=== PATIENT | male | born 1985 | race African-American/Black ===

== ENCOUNTER 2017-08-23 05:07 | Inpatient (IN) | payer MEDICARE, MEDICAID ==
[2017-08-23 05:40] LABS: Basophils % (A) 0 %; Eosinophils # (A) 0.2 k/uL (0-0.7); Eosinophils % (A) 2 %; HCT 41.8 % (39.0-53.0); HGB 14.1 gm/dL (13.0-17.5); Lymphocytes # (A) 2.3 k/uL (1.0-4.8); Lymphocytes % (A) 31 %; MCH 30.2 pg (25.0-35.0); MCHC 33.7 g/dL (31.0-37.0); MCV 89.5 fL (80.0-100.0); Mean Platelet Volume 6.2; Monocytes # (A) 0.3 k/uL (0-1.0); Monocytes % (A) 4 %; Neutrophils # (A) 4.7 k/uL (1.3-7.7); Neutrophils % (A) 62 %; Platelet Count 268 k/uL (150-450); RBC 4.67 m/uL (4.30-5.90); RDW 13.3 % (11.5-15.5); WBC 7.5 k/uL (3.8-10.6)
[2017-08-23 05:46] LABS: Appearance,Urine Cloudy (Clear); Bilirubin,Urine Negative (Negative); Blood,Urine Negative (Negative); Color,Urine Yellow; Glucose,Urine (UA) Negative (Negative); Ketones,Urine Trace (Negative); Leukocyte Esterase,Urine Moderate (Negative); Mucus,Urine Many /hpf; Nitrite,Urine Negative (Negative); Protein,Urine 1+ (Negative); Squamous Epithelial Cell,Urine 10 /hpf (0-4); WBC,Urine 16 /hpf (0-5)
[2017-08-23 05:48] LABS: ALT 33 U/L (21-72); AST 19 U/L (17-59); Albumin 4.6 g/dL (3.5-5.0); Alkaline Phosphatase 55 U/L (38-126); Amphetamine Screen,Urine Not Detected (NotDetected); Anion Gap 20 mmol/L; Barbiturate Screen,Urine Not Detected (NotDetected); Benzodiazepines Screen,Urine Not Detected (NotDetected); Blood Urea Nitrogen 13 mg/dL (9-20); Carbon Dioxide 23 mmol/L (22-30); Chloride 104 mmol/L (98-107); Cocaine Screen,Urine Not Detected (NotDetected); Glucose 136 mg/dL (74-99); Methadone Screen, Urine Not Detected (NotDetected); Opiate Screen,Urine Not Detected (NotDetected); Oxycodone Screen, Urine Not Detected (NotDetected); Phencyclidine Screen,Urine Not Detected (NotDetected); Potassium 3.6 mmol/L (3.5-5.1); Sodium 147 mmol/L (137-145); Total Bilirubin 0.3 mg/dL (0.2-1.3); Total Protein 7.5 g/dL (6.3-8.2); Tricyclic Antidepressant,Urine Not Detected (NotDetected); Urn Cannabinoid Scrn Not Detected (NotDetected)
--- NOTE | 2017-08-23 06:07 | ED ---
Psych HPI - General Chief Complaint: Psychiatric Symptoms Stated Complaint: Eval Time Seen by Provider: 08/23/17 05:13 Source: police, EMS Mode of arrival: EMS - History of Present Illness Initial Comments: This patient is a 32-year-old man brought here to have psychiatric evaluation. Patient arrives after [place] to [place]. He reportedly had taken a wrong turn on the highway and instead of going to [place] ended up going towards [place]. Then when he was questioned by the authorities there, he reportedly had given some answers it sounded delusional. 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 When I interview the patient, he is denying hallucinations. He denies homicidal or suicidal ideation. MD Complaint: other Onset/Timin -: hour(s) - Related Data Home Medications Medication Instructions Recorded Confirmed ARIPiprazole [Abilify] 15 mg PO DAILY@0800 08/23/17 08/25/17 Losartan Potassium 100 mg PO BID@08,20 08/23/17 08/25/17 OXcarbazepine [Trileptal] 600 mg PO BID@08,20 08/23/17 08/25/17 Simvastatin [Zocor] 20 mg PO HS@199908/23/17 08/25/17 fluPHENAZine DECANOATE [Prolixin 1 dose IM [id number] 08/23/17 08/25/17 Decanoate] Allergies Allergy/AdvReac Type Severity Reaction Status Date / Time No Known Allergies Allergy Verified 08/25/17 23:20 Review of Systems ROS Statement: Those systems with pertinent positive or pertinent negative responses have been documented in the HPI. ROS Other: All systems not noted in ROS Statement are negative. Constitutional: Denies: fever Respiratory: Denies: cough, dyspnea Cardiovascular: Denies: chest pain, palpitations, syncope Gastrointestinal: Denies: abdominal pain, vomiting, diarrhea Genitourinary: Denies: dysuria, hematuria Skin: Denies: rash Neurological: Denies: headache Past Medical History Past Medical History: Hypertension History of Any Multi-Drug Resistant Organisms: None Reported Past Surgical History: No Surgical Hx Reported Past Psychological History: No Psychological Hx Reported Smoking Status: Current every day smoker Past Alcohol Use History: None Reported Past Drug Use History: None Reported - Past Family History Father Family Medical History: No Reported History Mother Family Medical History: No Reported History General Exam Limitations: no limitations General appearance: alert Head exam: Present: atraumatic Eye exam: Present: normal appearance Respiratory exam: Present: normal lung sounds bilaterally. Absent: respiratory distress, wheezes, rales, rhonchi, stridor Cardiovascular Exam: Present: regular rate, normal rhythm, normal heart sounds GI/Abdominal exam: Present: soft. Absent: distended, tenderness, guarding Extremities exam: Present: normal capillary refill. Absent: pedal edema Neurological exam: Present: alert Skin exam: Present: warm, dry, intact, normal color. Absent: rash Course Vital Signs 08/23/17 08/23/17 08/23/17 05:14 10:53 18:17 Temperature 99.2 F 98.9 F 99.1 F Pulse Rate 120 H 102 H 100 Respiratory 18 18 18 Rate Blood Pressure 169/97 160/91 153/88 O2 Sat by Pulse 98 97 98 Oximetry Medical Decision Making - Lab Data Result diagrams: 08/23/17 05:27 08/23/17 05:27 Lab Results 08/23/17 08/23/17 08/23/17 Range/Units 05:27 05:27 05:27 WBC 7.5 (3.8-10.6) k/uL RBC 4.67 (4.30-5.90) m/uL Hgb 14.1 (13.0-17.5) gm/dL Hct 41.8 (39.0-53.0) % MCV 89.5 (80.0-100.0) fL MCH 30.2 (25.0-35.0) pg MCHC 33.7 (31.0-37.0) g/dL RDW 13.3 (11.5-15.5) % Plt Count 268 (150-450) k/uL Neutrophils % 62 % Lymphocytes % 31 % Monocytes % 4 % Eosinophils % 2 % Basophils % 0 % Neutrophils # 4.7 (1.3-7.7) k/uL Lymphocytes # 2.3 (1.0-4.8) k/uL Monocytes # 0.3 (0-1.0) k/uL Eosinophils # 0.2 (0-0.7) k/uL Basophils # 0.0 (0-0.2) k/uL Sodium 147 H (137-145) mmol/L Potassium 3.6 (3.5-5.1) mmol/L Chloride 104 (98-107) mmol/L Carbon Dioxide 23 (22-30) mmol/L Anion Gap 20 mmol/L BUN 13 (9-20) mg/dL Creatinine 0.80 (0.66-1.25) mg/dL Est GFR (CKD-EPI)AfAm >90 (>60 ml/min/1.73 sqM) Est GFR (CKD-EPI)NonAf >90 (>60 ml/min/1.73 sqM) Glucose 136 H (74-99) mg/dL Calcium 10.0 (8.4-10.2) mg/dL Total Bilirubin 0.3 (0.2-1.3) mg/dL AST 19 (17-59) U/L ALT 33 (21-72) U/L Alkaline Phosphatase 55 (38-126) U/L Troponin I <0.012 (0.000-0.034) ng/mL Total Protein 7.5 (6.3-8.2) g/dL Albumin 4.6 (3.5-5.0) g/dL Triglycerides (<150) mg/dL Cholesterol (<200) mg/dL LDL Cholesterol, Calc (0-99) mg/dL HDL Cholesterol (40-60) mg/dL TSH 2.190 (0.465-4.680) mIU/L Urine Color Urine Appearance (Clear) Urine pH (5.0-8.0) Ur Specific [place] (1.001-1.035) Urine Protein (Negative) Urine Glucose (UA) (Negative) Urine Ketones (Negative) Urine Blood (Negative) Urine Nitrite (Negative) Urine Bilirubin (Negative) Urine Urobilinogen (<2.0) mg/dL Ur Leukocyte Esterase (Negative) Urine WBC (0-5) /hpf Ur Squamous Epith Cells (0-4) /hpf Urine Mucus (None) /hpf Urine Opiates Screen (NotDetected) Ur Oxycodone Screen (NotDetected) Urine Methadone Screen (NotDetected) Ur Propoxyphene Screen (NotDetected) Ur Barbiturates Screen (NotDetected) U Tricyclic Antidepress (NotDetected) Ur Phencyclidine Scrn (NotDetected) Ur Amphetamines Screen (NotDetected) U Methamphetamines Scrn (NotDetected) U Benzodiazepines Scrn (NotDetected) Urine Cocaine Screen (NotDetected) U Marijuana (THC) Screen (NotDetected) 08/23/17 08/23/17 Range/Units 05:27 05:27 WBC (3.8-10.6) k/uL RBC (4.30-5.90) m/uL Hgb (13.0-17.5) gm/dL Hct (39.0-53.0) % MCV (80.0-100.0) fL MCH (25.0-35.0) pg MCHC (31.0-37.0) g/dL RDW (11.5-15.5) % Plt Count (150-450) k/uL Neutrophils % % Lymphocytes % % Monocytes % % Eosinophils % % Basophils % % Neutrophils # (1.3-7.7) k/uL Lymphocytes # (1.0-4.8) k/uL Monocytes # (0-1.0) k/uL Eosinophils # (0-0.7) k/uL Basophils # (0-0.2) k/uL Sodium (137-145) mmol/L Potassium (3.5-5.1) mmol/L Chloride (98-107) mmol/L Carbon Dioxide (22-30) mmol/L Anion Gap mmol/L BUN (9-20) mg/dL Creatinine (0.66-1.25) mg/dL Est GFR (CKD-EPI)AfAm (>60 ml/min/1.73 sqM) Est GFR (CKD-EPI)NonAf (>60 ml/min/1.73 sqM) Glucose (74-99) mg/dL Calcium (8.4-10.2) mg/dL Total Bilirubin (0.2-1.3) mg/dL AST (17-59) U/L ALT (21-72) U/L Alkaline Phosphatase (38-126) U/L Troponin I (0.000-0.034) ng/mL Total Protein (6.3-8.2) g/dL Albumin (3.5-5.0) g/dL Triglycerides 107 (<150) mg/dL Cholesterol 204 H (<200) mg/dL LDL Cholesterol, Calc 143 H (0-99) mg/dL HDL Cholesterol 40 (40-60) mg/dL TSH (0.465-4.680) mIU/L Urine Color Yellow Urine Appearance Cloudy (Clear) Urine pH 6.0 (5.0-8.0) Ur Specific [place] 1.030 (1.001-1.035) Urine Protein 1+ H (Negative) Urine Glucose (UA) Negative (Negative) Urine Ketones Trace H (Negative) Urine Blood Negative (Negative) Urine Nitrite Negative (Negative) Urine Bilirubin Negative (Negative) Urine Urobilinogen 4.0 (<2.0) mg/dL Ur Leukocyte Esterase Moderate H (Negative) Urine WBC 16 H (0-5) /hpf Ur Squamous Epith Cells 10 H (0-4) /hpf Urine Mucus Many H (None) /hpf Urine Opiates Screen Not Detected (NotDetected) Ur Oxycodone Screen Not Detected (NotDetected) Urine Methadone Screen Not Detected (NotDetected) Ur Propoxyphene Screen Not Detected (NotDetected) Ur Barbiturates Screen Not Detected (NotDetected) U Tricyclic Antidepress Not Detected (NotDetected) Ur Phencyclidine Scrn Not Detected (NotDetected) Ur Amphetamines Screen Not Detected (NotDetected) U Methamphetamines Scrn Not Detected (NotDetected) U Benzodiazepines Scrn Not Detected (NotDetected) Urine Cocaine Screen Not Detected (NotDetected) U Marijuana (THC) Screen Not Detected (NotDetected) Disposition Clinical Impression: Psychosis Disposition: ADMITTED IP TO THIS HOSP Condition: Fair Is patient prescribed a controlled substance at d/c from ED?: No
[2017-08-23] MEDS ORDERED: OXcarbazepine 300 MG TAB PO STA ×2 (10:32→18:52)
[2017-08-23] MEDS ORDERED: LOSARTAN 50 MG TAB PO STA ×2 (10:33→18:49)
[2017-08-23] MEDS ORDERED: ARIPiprazole 15 MG TAB PO STA ×2 (10:34→18:48)
[2017-08-23] MEDS ORDERED: LORazepam 1 MG TAB PO PRN (19:15)
[2017-08-23] MEDS ORDERED: MAGNESIUM HYDROXIDE 2,400 MG/10 ML CUP PO PRN (19:15)
[2017-08-23] MEDS ORDERED: ZIPRASIDONE 20 MG VIAL IM PRN (19:15)
[2017-08-23] MEDS ORDERED: ACETAMINOPHEN TAB 325 MG TAB PO PRN (19:15)
[2017-08-23] MEDS ORDERED: MAG HYDROX/AL HYDROX/SIMETH 30 ML CUP PO PRN (19:15)
[2017-08-23] MEDS ORDERED: ATORVASTATIN 10 MG TAB PO SCH (20:00)
--- NOTE | 2017-08-23 20:27 | P.HPMEDMHU ---
History of Present Illness H&P Date: 08/23/17 Chief Complaint: delusions Patient is a 32-year-old -[place] male with a history of hypertension, dyslipidemia, and history of mental health disorder who was brought in by police to the ER for delusional behaviors. 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 None of these statements appears to be true. Was also found that patient had recently been released from [facility] after a one-month hospitalization. He has subsequently been admitted to the mental health unit. Patient seen and examined at bedside with nursing present. He is very angry about receiving an injection prior to coming to the mental health unit. He complains of pain in his right finger after an Accu-Chek and pain in his left thigh after an IM injection. He denies any chest pain, shortness of breath, nausea, vomiting, constipation, dysuria, or diarrhea. 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 He needs to talk to the [place]. We explained him the process of being petitioned. When I asked him his medical history he said you already know, its in my records and I'm not going to continue to repeat it. Review of Systems Unable to fully obtain due to patient being abrasive with questioning and not answering questions, as able to obtain in [facility]. Past Medical History Past Medical History: Hypertension Additional Past Medical History / Comment(s): Patient [facility] HTN, he also appears to be on medications for HLD but patient denies high cholesterol when asked. History of Any Multi-Drug Resistant Organisms: None Reported Past Surgical History: No Surgical Hx Reported Past Psychological History: No Psychological Hx Reported Smoking Status: Current every day smoker Past Alcohol Use History: None Reported Past Drug Use History: None Reported - Past Family History Father Family Medical History: No Reported History Mother Family Medical History: No Reported History Medications and Allergies Home Medications Medication Instructions Recorded Confirmed Type ARIPiprazole [Abilify] 15 mg PO DAILY@0800 08/23/17 08/23/17 History Losartan Potassium 100 mg PO BID@08,20 08/23/17 08/23/17 History OXcarbazepine [Trileptal] 600 mg PO BID@08,20 08/23/17 08/23/17 History Simvastatin [Zocor] 20 mg PO HS@199908/23/17 08/23/17 History fluPHENAZine DECANOATE [Prolixin 1 dose IM [id number] 08/23/17 08/23/17 History Decanoate] Allergies Allergy/AdvReac Type Severity Reaction Status Date / Time No Known Allergies Allergy Verified 08/23/17 09:53 Physical Exam Osteopathic Statement: *. No significant issues noted on an osteopathic structural exam other than those noted in the History and Physical/Consult. Vitals: Vital Signs Temp Pulse Resp BP Pulse Ox 08/23/17 18:17 99.1 F 100 18 153/88 98 08/23/17 10:53 98.9 F 102 H 18 160/91 97 08/23/17 05:14 99.2 F 120 H 18 169/97 98 Intake and Output 08/23/17 08/23/17 08/23/17 06:59 14:59 22:59 Other: Weight 99.79 kg General: non toxic, no distress, appears at stated age, obese Derm: no unusual rashes/lesions no unusual ecchymoses, warm, dry, tattoos Head: atraumatic, normocephalic, symmetric Eyes: EOMI, no lid lag, anicteric sclera, pupils equal round reactive to light ENT: Nose and ears atraumatic, no thrush, no pharyngeal erythema Neck: No thyromegaly, no cervical lymphadenopathy, trachea midline, supple Mouth: no lip lesion, mucus membranes moist Cardiovascular: S1S2 reg, no murmur, positive posterior tibial pulse bilateral, no edema, capillary refill less than 2 seconds Lungs: Wheeze right base, no rhonchi, no rales , no accessory muscle use Abdominal: soft, nontender to palpation, no guarding, no appreciable organomegaly, normal bowel sounds Ext: no gross muscle atrophy, muscle strength grossly intact, no contractures, Neuro: CN II-XI grossly intact, Psych: Alert, oriented to place and person, appropriate affect Cranial Nerve Examination - Cranial Nerves Cranial Nerve II- Optic: Intact Cranial Nerve III- Oculomotor: Intact Cranial Nerve IV- Trochlear: Intact Cranial Nerve V- Trigeminal: Intact Cranial Nerve - Abducens: Intact Cranial Nerve VII- Facial: Intact Cranial Nerve VIII- Auditory: Intact Cranial Nerve IX- Glossopharyngeal: Intact Cranial Nerve X- Vagus: Intact Cranial Nerve XI- Accessory: Intact Cranial Nerve XII- Hypoglossal: Intact Results CBC & Chem 7: 08/23/17 05:27 08/23/17 05:27 Labs: Abnormal Lab Results - Last 24 Hours (Table) 08/23/17 08/23/17 Range/Units 05:27 05:27 Sodium 147 H (137-145) mmol/L Glucose 136 H (74-99) mg/dL Urine Protein 1+ H (Negative) Urine Ketones Trace H (Negative) Ur Leukocyte Esterase Moderate H (Negative) Urine WBC 16 H (0-5) /hpf Ur Squamous Epith Cells 10 H (0-4) /hpf Urine Mucus Many H (None) /hpf Assessment and Plan Assessment: Hypertension, mildly elevated on arrival -Resume losartan -Follow blood pressures Dyslipidemia -Continue statin -Check lipid profile in a.m. Tobacco abuse -Cessation -Nicotine replacement Morbid obesity with BMI 34.5 -Structured outpatient weight loss Delusional behaviors -Your psych management Thank you for allowing us to participate in the care of this patient. We will follow peripherally. Do not hesitate to contact us with questions. Someone can be reached from the [facility] hospitalist group at all hours of the day at [phone].
[2017-08-24 03:28] LABS: Cholesterol 204 mg/dL (<200); HDL Cholesterol 40 mg/dL (40-60); LDL Cholesterol,Calculated 143 mg/dL (0-99); Triglycerides 107 mg/dL (<150)
[2017-08-24] MEDS: ARIPiprazole 15 MG TAB PO SCH (09:19)
[2017-08-24] MEDS: OXcarbazepine 300 MG TAB PO SCH ×2 (09:19→20:51)
[2017-08-24] MEDS: LOSARTAN 50 MG TAB PO SCH ×2 (09:19→20:52)
--- NOTE | 2017-08-24 12:49 | P.HP ---
Psychiatric H&P - . H&P Date: 08/24/17 History & Physical: Allergies Allergy/AdvReac Type Severity Reaction Status Date / Time No Known Allergies Allergy Verified 08/23/17 09:53 Vital Signs Temp 96.9 F L 08/23/17 20:20 Pulse 148 H 08/24/17 09:10 Resp 18 08/24/17 09:10 BP 145/104 08/24/17 09:10 Pulse Ox 98 08/24/17 09:10 Laboratory Last Values WBC 7.5 k/uL (3.8-10.6) 08/23/17 05:27 RBC 4.67 m/uL (4.30-5.90) 08/23/17 05:27 Hgb 14.1 gm/dL (13.0-17.5) 08/23/17 05:27 Hct 41.8 % (39.0-53.0) 08/23/17 05:27 MCV 89.5 fL (80.0-100.0) 08/23/17 05:27 MCH 30.2 pg (25.0-35.0) 08/23/17 05:27 MCHC 33.7 g/dL (31.0-37.0) 08/23/17 05:27 RDW 13.3 % (11.5-15.5) 08/23/17 05:27 Plt Count 268 k/uL (150-450) 08/23/17 05:27 Neutrophils % 62 % 08/23/17 05:27 Lymphocytes % 31 % 08/23/17 05:27 Monocytes % 4 % 08/23/17 05:27 Eosinophils % 2 % 08/23/17 05:27 Basophils % 0 % 08/23/17 05:27 Neutrophils # 4.7 k/uL (1.3-7.7) 08/23/17 05:27 Lymphocytes # 2.3 k/uL (1.0-4.8) 08/23/17 05:27 Monocytes # 0.3 k/uL (0-1.0) 08/23/17 05:27 Eosinophils # 0.2 k/uL (0-0.7) 08/23/17 05:27 Basophils # 0.0 k/uL (0-0.2) 08/23/17 05:27 Sodium 147 mmol/L (137-145) H 08/23/17 05:27 Potassium 3.6 mmol/L (3.5-5.1) 08/23/17 05:27 Chloride 104 mmol/L (98-107) 08/23/17 05:27 Carbon Dioxide 23 mmol/L (22-30) 08/23/17 05:27 Anion Gap 20 mmol/L 08/23/17 05:27 BUN 13 mg/dL (9-20) 08/23/17 05:27 Creatinine 0.80 mg/dL (0.66-1.25) 08/23/17 05:27 Est GFR (CKD-EPI)AfAm >90 (>60 ml/min/1.73 sqM) 08/23/17 05:27 Est GFR (CKD-EPI)NonAf >90 (>60 ml/min/1.73 sqM) 08/23/17 05:27 Glucose 136 mg/dL (74-99) H 08/23/17 05:27 Calcium 10.0 mg/dL (8.4-10.2) 08/23/17 05:27 Total Bilirubin 0.3 mg/dL (0.2-1.3) 08/23/17 05:27 AST 19 U/L (17-59) 08/23/17 05:27 ALT 33 U/L (21-72) 08/23/17 05:27 Alkaline Phosphatase 55 U/L (38-126) 08/23/17 05:27 Troponin I <0.012 ng/mL (0.000-0.034) 08/23/17 05:27 Total Protein 7.5 g/dL (6.3-8.2) 08/23/17 05:27 Albumin 4.6 g/dL (3.5-5.0) 08/23/17 05:27 Triglycerides 107 mg/dL (<150) 08/23/17 05:27 Cholesterol 204 mg/dL (<200) H 08/23/17 05:27 LDL Cholesterol, Calc 143 mg/dL (0-99) H 08/23/17 05:27 HDL Cholesterol 40 mg/dL (40-60) 08/23/17 05:27 TSH 2.190 mIU/L (0.465-4.680) 08/23/17 05:27 Urine Color Yellow 08/23/17 05:27 Urine Appearance Cloudy (Clear) 08/23/17 05:27 Urine pH 6.0 (5.0-8.0) 08/23/17 05:27 Ur Specific [place] 1.030 (1.001-1.035) 08/23/17 05:27 Urine Protein 1+ (Negative) H 08/23/17 05:27 Urine Glucose (UA) Negative (Negative) 08/23/17 05:27 Urine Ketones Trace (Negative) H 08/23/17 05:27 Urine Blood Negative (Negative) 08/23/17 05:27 Urine Nitrite Negative (Negative) 08/23/17 05:27 Urine Bilirubin Negative (Negative) 08/23/17 05:27 Urine Urobilinogen 4.0 mg/dL (<2.0) 08/23/17 05:27 Ur Leukocyte Esterase Moderate (Negative) H 08/23/17 05:27 Urine WBC 16 /hpf (0-5) H 08/23/17 05:27 Ur Squamous Epith Cells 10 /hpf (0-4) H 08/23/17 05:27 Urine Mucus Many /hpf (None) H 08/23/17 05:27 Urine Opiates Screen Not Detected (NotDetected) 08/23/17 05:27 Ur Oxycodone Screen Not Detected (NotDetected) 08/23/17 05:27 Urine Methadone Screen Not Detected (NotDetected) 08/23/17 05:27 Ur Propoxyphene Screen Not Detected (NotDetected) 08/23/17 05:27 Ur Barbiturates Screen Not Detected (NotDetected) 08/23/17 05:27 U Tricyclic Antidepress Not Detected (NotDetected) 08/23/17 05:27 Ur Phencyclidine Scrn Not Detected (NotDetected) 08/23/17 05:27 Ur Amphetamines Screen Not Detected (NotDetected) 08/23/17 05:27 U Methamphetamines Scrn Not Detected (NotDetected) 08/23/17 05:27 U Benzodiazepines Scrn Not Detected (NotDetected) 08/23/17 05:27 Urine Cocaine Screen Not Detected (NotDetected) 08/23/17 05:27 U Marijuana (THC) Screen Not Detected (NotDetected) 08/23/17 05:27 08/24/17 12:15 Identification: Patient is a 32-year-old male who was petitioned by the police [place]. 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 Patient was driving a van from the semi-assisted living facility that he resides in in [facility]. History of Present Illness: Patient is a poor historian, most of the information was obtained from the medical record as well as records from [facility] his outpatient treatment provider. Patient was most recently in [facility] from July 25 2 appears to be August 14, during that time patient was refusing injectable medication is unclear to me if he was taking oral medication and it is unclear if he actually took an injectable form of medication prior to his discharge from the hospital. Patient has reported to have refused an injection of Prolixin after discharge, this is unclear to me. Patient's medications were listed as Abilify 15 mg daily, Trileptal 600 mg twice a day and he was to be receiving long-acting Prolixin injectable. Patient refuses to cooperate during the interview stating that its his brother that should be in the hospital and should have been arrested last night. He states that his brother has the same name that he does and that its his brother who gets the patient put into the hospital. He states that he's tried to change his name and uses different social security number but his brother continues to find out that information. Patient states that he stopped taking any of his medications that he was discharged from the hospital on because they are confused with his brother who has the same name. He also reported that the medication had trackers and it them when I asked him to explain this further. He told me that the doctor at [facility] told him to stop taking all of his medications at their last appointment 2 days prior to his admission and he states that the doctor told him to leave. Patient states that he lives in a room and board, in fact he lives in a semi-independent living situation, patient states that he pays the insurance on the van, he was given the keys by a worker at the home and that he was trying to get to [place] to visit his . He states he took a wrong turn and ended up here in [place]. Patient reported to me that he does not require medication, we have him confused with his brother who does require hospitalization and medication. 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 Patient denied any prior history and denied any symptoms that I asked him about. Patient did not endorse any symptoms stating that this was all about his brother. Past Psychiatric History: patient refused to discuss his history stating that he 's never been admitted before, however the patient was in [facility] for 3-4 weeks just recently. Patient refused to discuss what prior medications he is on and states that he does not need them. Past Medical/Surgical History: patient refuses to answer any questions regarding his medical history stating that he does not have hypertension does not require medication for it and that if he has hypertension is because people gave him medications that caused him to have hypertension. Family History: patient refused to answer Social History: patient states he was born and raised in [place] both of his parents are alive and one living in [place] and one living in [place]. He states that when he was 1 years of age and he continued to live with his mother. He states he has 3 siblings. He reports that he finished high school and then went on to college where he obtained 42 some of which were a medical degree a PhD in philosophy, etc. 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 He states that he is on Social Security disability. Patient refused to discuss any abuse history. Substance Use History: patient denied that he is ever used any alcohol or drugs and states he recently started smoking regrets because of the stress she was under Legal History: Patient denied any legal history but stated his brother is been arrested multiple times for possession of drugs, breaking and entering as well as others charges Mental status: Appearance/Attitude: Patient is dressed in a hospital gown, makes intermittent eye contact, has poor grooming with a strong body odor and his hair is uncombed, patient is superficially cooperative refusing to answer most questions Behavior: Patient did not display any psychomotor agitation or retardation. Speech/Language: Patient was spontaneous, speech was of normal volume and rhythm and he was coherent Thought Process: Patient was rambling, at times tangential Thought Content: Patient denied auditory or visual hallucinations, he expressed multiple delusional thoughts regarding having 40, being a law officer, a medical doctor and stating that his brother has the same name and his brothers one who put the patient in the hospital and the brother is the one who does bad things and needs medication. 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 Patient states that the medications have trackers in them, that the physician recently told him that he needed to stop taking all of his medications and asked him to leave. Patient stated that he will not take any medications, states that he was incorrectly admitted to the last hospital and showed me his birthmark to prove that he is not his brother. Patient stated that he doesn't need medication that the medications caused his elevated blood pressure and he doesn't care if he has a stroke. Suicidal/Homicidal Ideation: Patient denied any current suicidal or homicidal ideation Sensorium/Cognition: Patient is alert and oriented to person, place, situation and unable to perform further cognitive testing is a patient does not cooperate Mood/Affect: Patient's mood is irritable, guarded and his affect is appropriate to his mood Insight/Judgment: Patient's insight and judgment are impaired Intellectual Functioning: patient's intellectual functioning appears average Strength/Weakness: unable to assess Assessment: patient was recently at [facility] and was discharged around August 14 after admission that began on July 25. It is unclear what medication the patient was taking in the hospital but from records from his outpatient provider he had been refusing injectable medication shortly prior to his discharge. Patient is to have recently refused an injection of Prolixin long-acting is unclear to me if this was in the hospital after his release. Patient presents with delusional ideation, grandiose in nature; he is refusing all medications stating that it is brother who has the same name that needs to be in the hospital. Patient took Ativan from his semi-independent housing and was driving he states to [place] to visit his when he took a wrong turn and ended up in [place] on the bridge entering [place]. 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 Patient would not respond to questions regarding his psychiatric or medical history, denied having any symptoms at all. 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 Patient is living in [place] in a semi-independent home. Patient's medications are to be Abilify 15 mg, Trileptal 600 twice a day and he was to be receiving long-acting Prolixin. Further information regarding this patient's prior psychiatric history, medical history are unobtainable from the patient, he is refusing his antihypertensive medications as he feels the medications have tracking on them and that he is been told to stop taking all of his medications. Admission Diagnosis: Psychosis, unspecified rule out bipolar disorder, current episode manic with psychotic features; rule out schizophrenia Plan: Patient was admitted on an involuntary basis and a second certificate was completed, patient is refusing all medications including his blood pressure medication stating that he does not require any. Patient was placed on routine observation in group and activity therapy were ordered. Patient also had routine laboratory studies as well as a medical consultation. Patient was continued on his medications for his blood pressure as well as medication for his elevated lipids. Patient was continued on Abilify 15 mg orally and Trileptal 600 mg twice a day. Patient was refused to take any of his medications. Patient requires hospitalization to further stabilize his psychotic symptoms. 08/24/17 12:33 08/24/17 12:48
[2017-08-24] MEDS: ATORVASTATIN 20 MG TAB PO SCH (20:52)
[2017-08-25] MEDS: ARIPiprazole 15 MG TAB PO SCH ×2 (09:33→12:17)
[2017-08-25] MEDS: LOSARTAN 50 MG TAB PO SCH ×2 (09:33→21:05)
[2017-08-25] MEDS: OXcarbazepine 300 MG TAB PO SCH (09:33)
[2017-08-25] MEDS: amLODIPine 5 MG TAB PO SCH (09:33)
[2017-08-25] MEDS ORDERED: ZIPRASIDONE 20 MG VIAL IM PRN (12:07)
--- NOTE | 2017-08-25 12:21 | P.PN ---
Progress Note - Text Progress Note Date: 08/25/17 Interval History: Patient is a 32-year-old male who was seen today, he states continue stay in his room. I discussed with him and brought him a copy of the paperwork from his court order that was obtained in [facility]. Patient continues to have 28 days left on his inpatient court order. Patient stated that he wanted to see a state or maintenance services dispatcher because this is not [facility] and is not valid here. Patient continues to refuse all medication, including his blood pressure medication. Mental Status: Appearance/Attitude: Patient is in a hospital gown, appears unkempt, is superficially cooperative Behavior: Patient does not exhibit any psychomotor agitation or retardation, but is easily irritated Speech/Language: Patient's speech is spontaneous of normal volume and rhythm and he is coherent Thought Process: Patient is goal-directed Thought Content: Patient refuses to answer questions, stating that he needs to talk to a state or maintenance services dispatcher regarding the court order for treatment as this is not [facility]. Explained to him that the probate Court had been contacted here and that a court order was valid and any County [place] [facility] [place]. Patient continues to refuse treatment stating that he does not require medication or treatment. Suicidal/Homicidal Ideation: Patient refused to answer Sensorium/Cognition: Patient is alert and oriented to person, place and time Mood/Affect: Patient's mood is irritable and guarded and his affect is appropriate to his mood Insight/Judgment: Patient's insight and judgment are limited Assessment: A copy of the court order was obtained from [facility] and the patient is 28 days left remaining on a 45 day inpatient hospitalization order. Patient was given a copy of this order and stated that he doesn't need medication, has not county, the order is not valid. patient was told that this was confirmed with the probate court in this county and he continues to state that he is not going to take medication. i explained again to the patient what meaning of a court order is the fact that this means he has to take medication that if he does not take it orally he will receive an injection. Plan: Patient will be offered Abilify 15 mg orally on a daily basis and if he refuses will receive Geodon 10 mg IM. Patient continues to require hospitalization to target his psychotic symptoms.
[2017-08-25] MEDS: ATORVASTATIN 20 MG TAB PO SCH (21:05)
[2017-08-26] MEDS: ARIPiprazole 15 MG TAB PO SCH (08:24)
[2017-08-26] MEDS: amLODIPine 5 MG TAB PO SCH (08:24)
[2017-08-26] MEDS: LOSARTAN 50 MG TAB PO SCH ×2 (08:24→20:21)
--- NOTE | 2017-08-26 12:22 | P.PN ---
Progress Note - Text Progress Note Date: 08/26/17 Patient refused to speak with me today, he spends his time in his room does leave to eat meals. Patient has been compliant with his medication, taking his Abilify 15 mg as well as his antihypertensive medications. Patient's Abilify can be increased and would suggest using long-acting Abilify should patient responds to the medication. Patient is on a court order and I again explained this to the patient. Patient has not been attending groups or activities. Patient continues to require hospitalization to further stabilize his psychotic symptoms.
[2017-08-26] MEDS: ATORVASTATIN 20 MG TAB PO SCH (20:21)
[2017-08-27] MEDS ORDERED: amLODIPine 5 MG TAB PO STA (00:36)
[2017-08-27] MEDS: ARIPiprazole 15 MG TAB PO SCH (08:07)
[2017-08-27] MEDS: LOSARTAN 50 MG TAB PO SCH ×2 (08:07→20:37)
[2017-08-27] MEDS: amLODIPine 5 MG TAB PO SCH (08:07)
--- NOTE | 2017-08-27 11:05 | P.PN ---
Progress Note - Text Interval history: The patient is found in his room lying in bed. He refuses to follow me to an interview room. He states he does not wish to answer questions. He has not been attending groups. He states he did eat breakfast. He appears to have been compliant with the Abilify. He states he is on a court order. He endorses no thoughts of harming himself or others he is endorsing no hallucinations. He does not describe why he was admitted to the hospital. Mental status exam: The patient is an -[place] male appearing his stated age. He is a disheveled appearance. He is dressed in hospital gowns he is lying in bed and is covered with a blanket. Eye contact is poor. He does appear tired. He demonstrates no verbal or physical aggressiveness but is dismissive of the interview questions. He demonstrates no abnormal involuntary movements. Insight and judgment impaired. It is likely he continues to have a delusional thought content although he does not discuss it today. Plan: The patient will continue on his current medication he is prescribed Abilify 15 mg daily. We may need to titrate that further. We will monitor for safety and encourage his participation in the milieu. We will provide reality orientation when possible.
[2017-08-27] MEDS: ATORVASTATIN 20 MG TAB PO SCH (20:37)
[2017-08-28] MEDS: LOSARTAN 50 MG TAB PO SCH ×2 (08:06→20:16)
[2017-08-28] MEDS: ARIPiprazole 15 MG TAB PO SCH (08:06)
[2017-08-28] MEDS: amLODIPine 5 MG TAB PO SCH (08:07)
[2017-08-28] MEDS ORDERED: ARIPiprazole 5 MG TAB PO ONE (10:11)
--- NOTE | 2017-08-28 10:16 | P.PN ---
Progress Note - Text Interval history: The patient is found in his room he continues to isolate there. He refuses to follow me to an interview room. He states that he is here to tell people who he is and then makes other bizarre statements. When asked to clarify he expresses more disorganized delusional thought content and disorganized thinking. Staff reports that the patient does get up for meals. Mental status exam: The patient is an -Austrian male he is alert lying in bed. He makes eye contact today. He demonstrates no spontaneous speech but does provide brief answers to questions asked. He is dressed in hospital attire and is covered with a sheet and blanket. Hygiene is impaired. He is reporting no suicidal or homicidal thoughts. He is endorsing no hallucinations. It is evident that he is experiencing delusional thought content. Thought process demonstrates disorganization at times. Insight and judgment limited. Affect is flat. He is oriented to person place and date. Plan: The patient will continue on the Abilify we will titrate the dose to 20 mg daily today. We will continue to monitor him for safety. He continues to demonstrate symptoms of psychosis requiring hospitalization.
[2017-08-28] MEDS: ATORVASTATIN 20 MG TAB PO SCH (20:16)
[2017-08-29] MEDS: amLODIPine 5 MG TAB PO SCH (09:34)
[2017-08-29] MEDS: LOSARTAN 50 MG TAB PO SCH ×2 (09:34→20:34)
--- NOTE | 2017-08-29 14:00 | P.PN ---
Progress Note - Text Progress Note Date: 08/29/17 I reviewed the medical record and attempted to interview Mr. Sims. He is a 32-year-old -[place]aur[place] male who has a history of a psychotic disorder that has been diagnosed as bipolar disorder and a schizophrenia disorder. He presented to the unit involuntarily by the police because he was trying to enter into [place] in a van that he has stolen from [facility] home where he had lived. 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 He refused prescribed psychotropic medications until staffed provided him with copies of the involuntary treatment order. He has since been compliant with Abilify 20 mg daily. He refused to get out of bed but spoke to me in his room. He requested to be discharged alleging there is no reason for him to remain in the hospital. He wishes to live his own home and did not return to the [facility] home or to his mother' s home. He presented as a disheveled and malodorous middle-aged -Nauruan male who is laying comfortably in bed. He made intermittent eye contact but appeared to attend to the interview. He had a blunted facial expression. He was alert and oriented to person, place and time. He showed psychomotor retardation but no abnormal movements. Her speech was not spontaneous. His affect was blunted but stable and appropriate. He denied suicidal ideation or wishes. He denied homicidal ideation. He did not expressed depressive cognitions such as hopelessness, helplessness or worthlessness. He ruminated about discharge and is severe not to live in a controlled environment. He did not express ideas reference or cleared delusional thoughts. He appeared paranoid and suspicious. His thinking was concrete because associations appeared goal directed. He did not express clang associations, perseverations, neologisms or blocking. He denied hallucinations and did not appear to be responding to internal stimuli. Impression: Psychotic disorder not otherwise specified, rule out bipolar disorder, rule out schizophrenia, poor compliance with psychiatric care. Plan: Continue with inpatient psychiatric hospitalization due to the severity of his psychiatric symptoms. Monitor compliance with prescribed antipsychotic medications. Discuss transitioning from oral Abilify to long acting injectable Abilify. Encourage participation in therapeutic activities. aircraft lay out worker to coordinate discharge and aftercare with family and H.
[2017-08-29] MEDS: ATORVASTATIN 20 MG TAB PO SCH (20:34)
[2017-08-30] MEDS: amLODIPine 5 MG TAB PO SCH (09:43)
[2017-08-30] MEDS: LOSARTAN 50 MG TAB PO SCH ×2 (09:43→21:24)
--- NOTE | 2017-08-30 14:58 | P.PN ---
Progress Note - Text Progress Note Date: 08/30/17 I reviewed the medical record, interviewed Mr. Sims discuss his treatment and treatment plan with the team meeting. He does not recognize the need for psychiatric care or treatment with psychotropic medications. He stated that he is here to serve his "28 days" (referring to the length of his involuntary treatment order). He stated he plans to move to [place] once he leaves the hospital and removes the owners of his former [facility] home as the payee of his disability. He will meet with his nutrition representative from [facility] today. He is compliant with the prescribed dose of Abilify and denied side effects to the medication. He is not participate in therapeutic groups or activities. He presented as a disheveled appearing moderately obese -[place] male who was irritable but tolerated the interview. He made eye contact and appeared to attend to the exam. He had no distinguishing features or prominent physical abnormalities. He is angry facial expression. He was alert and oriented to person, place and time. He showed slight psychomotor retardation but no abnormal movements. His speech was not spontaneous but had normal rate and rhythm. His affect was irritable and angry. He denied suicidal ideation or wishes. He denied homicidal ideation. He expressed feelings of hopelessness and helplessness regarding the continued hospitalization and lack of access to his disability benefits. He perseverated about discharge and residence after leaving the hospital. He did not express ideas reference or clear paranoid ideation. His thinking was concrete and associations were not fully coherent or logical. He denied hallucinations and did not appear to be responding to internal stimuli. Impression: schizophrenia, poor compliance with mental health care Plan: Continue inpatient psychiatric hospitalization due to severity of his psychiatric symptoms. Continue to monitor compliance with Abilify 20 mg daily. Discuss transitioning from oral to long-acting injectable Abilify. Encourage participation in therapeutic groups and activities. Evaluate clinical status response to treatment daily basis.
[2017-08-30] MEDS: ATORVASTATIN 20 MG TAB PO SCH (21:24)
[2017-08-31] MEDS: LOSARTAN 50 MG TAB PO SCH ×2 (08:21→21:05)
[2017-08-31] MEDS: amLODIPine 5 MG TAB PO SCH (08:21)
--- NOTE | 2017-08-31 13:52 | P.PN ---
Progress Note - Text Progress Note Date: 08/31/17 I reviewed the medical record, interviewed the patient and discussed his treatment and treatment plan during team meeting. He had no specific complaints today and was not focused on discharge as he was yesterday. I inquired about his meeting with his ribbon hanking machine operator from [facility]. I did not fully understand his response. He seemed to imply that he and the ribbon hanking machine operator agreed that he should have a payee. However, our social media executive spoke to the ribbon hanking machine operator who is assisting the patient's mother with obtaining guardianship. We again talked about his plans after discharge from the hospital. 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 I did not fully understand his thinking but he seemed to imply that he was "Anirudh Ball" or "Angelo Ball". 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 He does not attend therapeutic groups or activities. He spends most of his time alone in his room and comes out for meals. On mental status he presented as a somewhat disheveled appearing moderately obese -Argent[place] male who was pleasant on approach. He makes eye contact and appears to attend to the exam. He is no distinguishing features or prominent physical modalities. He had a blunted facial expression. He is alert and oriented to person, place and time. He showed psychomotor retardation but no abnormal movements. He was not agitated or restless. His speech was not spontaneous and had decreased rate, rhythm and volume. He had no articulation difficulties. His affect was flat. He denied suicidal ideation or wishes. He denied homicidal ideation. He expressed ideas of reference and delusional thoughts. His thinking was concrete and associations were not coherent or logical. He denied hallucinations and did not appear to be responding to internal stimuli. Impression: Schizophrenia multiple episodes currently in partial remission, poor compliance with medical care Plan: Continue [id number] mg daily administered her first injection of Abilify Maintena a 400 mg today. Continue with oral Abilify until the next monthly interest of Maintena. Continue to encourage participation in therapeutic groups and activities. Coordinate aftercare disposition with [facility] and family. Evaluate clinical status response to treatment on a daily basis.
[2017-08-31] MEDS ORDERED: ARIPiprazole 400 MG VIAL (NO CHARGE) IM ONE (14:00)
[2017-08-31] MEDS: ATORVASTATIN 20 MG TAB PO SCH (21:05)
[2017-09-01] MEDS: LOSARTAN 50 MG TAB PO SCH ×2 (09:26→20:57)
[2017-09-01] MEDS: amLODIPine 5 MG TAB PO SCH (09:28)
--- NOTE | 2017-09-01 14:16 | P.PN ---
Progress Note - Text Progress Note Date: 09/01/17 I reviewed the medical record, interviewed the patient and discuss his treatment and treatment plan during team meeting. He was laying in bed but sat up to speak with me. He complained that he remains in bed and does not participate in therapeutic groups and activities because of the medications that we are prescribing. He received his first injection of Abilify Maintena a 400 mg yesterday. He presented as a casually groomed middle-aged -Ch[place] male who is laying comfortably in bed. He maintained eye contact and appeared to attend to interview. He had a flat facial expression. He showed psychomotor retardation and no abnormal movements. His speech was not spontaneous and had decreased rhythm and volume. His affect was flat and unreactive. He did not express suicidal ideation, wishes or homicidal ideation. He expressed feeling hopeless and helpless with regard to this hospitalization and requirement to take psychotropic medications. He did not express ideas reference, paranoid ideation or clear delusions. His thinking was concrete but his associations appeared goal directed. He denied hallucinations and did not appear to be responding to internal stimuli. Impression: He remains compliant with prescribed psychotropic medication but shows no insight or understanding of need for mental health treatment. His diagnosis remains unchanged. Plan: Continue inpatient hospitalization due to severity of his mental illness. Continue Abilify 20 mg by mouth daily. Encourage participation in therapeutic groups and activities. Evaluate clinical status response to treatment on a daily basis. geothermal sheet metal worker to coordinate discharge and aftercare with his wireless architect from [facility].
[2017-09-01] MEDS: ATORVASTATIN 20 MG TAB PO SCH (20:57)
[2017-09-02] MEDS: LOSARTAN 50 MG TAB PO SCH ×2 (09:23→21:35)
[2017-09-02] MEDS: amLODIPine 5 MG TAB PO SCH (09:24)
--- NOTE | 2017-09-02 15:07 | P.PN ---
Subjective Progress Note Date: 09/02/17 Principal diagnosis: Schizophrenia, multiple episodes, currently in acute period I reviewed the medical record, attempted to interview the patient and discuss his treatment and treatment plan during team meeting. He was laying in bed and did not wish to get up and walk to my office. He complained that he was tired and fatigued due to "our medicines." He did not express grandiose or paranoid delusional beliefs or thoughts. When asked where he plans to live after discharge she replied "I don't know." When I asked whether he plan to move to [place] (if she had told me the past) or moved to his house in [facility] he can replied "I don't know". ironworker machine operator informed the treatment team that his mother has a probate hearing for guardianship next week. Objective - Vital Signs Vital signs: Vital Signs Temp 97.5 F L 09/02/17 06:10 Pulse 92 09/02/17 10:58 Resp 18 09/02/17 10:58 BP 132/84 09/02/17 10:58 Pulse Ox 97 08/24/17 16:21 - Psychiatric Psychiatric Comment(s): He presented as a somewhat disheveled appearing moderately obese - Tongan male who is laying in bed. He made eye contact and appeared to attend to the interview. He had a flat facial expression. He showed psychomotor retardation but no abnormal movements. Her speech was not spontaneous and had decreased volume and rhythm. His affect was flat and unreactive. He did not express suicidal ideation, wishes or homicidal ideation. In response to questions about hopelessness, helplessness and worthlessness he shook his head and said "no". He did not express ideas reference, paranoid ideation or delusional thoughts. His thinking was concrete but appeared coherent. He denied hallucinations and did not appear to be responding to internal stimuli. - Labs CBC & Chem 7: 08/23/17 05:27 08/23/17 05:27 Assessment and Plan (1) Schizophrenia Current Visit: Yes Status: Acute Priority: High Code(s): F20.9 - SCHIZOPHRENIA, UNSPECIFIED SNOMED Code(s): 55468219 Plan: Continue inpatient hospitalization due to severity of his psychiatric symptoms. Continue Abilify 20 mg daily for 14 days after his first injection Maintena. Consider trial of an antidepressant to address a motivation an apparent anhedonia. Coordinate discharge and aftercare with a [facility]. Encourage patient to participate in therapeutic groups and activities. Evaluate clinical status response to treatment on a daily basis.
[2017-09-02] MEDS: ATORVASTATIN 20 MG TAB PO SCH (21:35)
[2017-09-03] MEDS: amLODIPine 5 MG TAB PO SCH (08:45)
[2017-09-03] MEDS: LOSARTAN 50 MG TAB PO SCH ×2 (08:46→20:06)
[2017-09-03] MEDS: ATORVASTATIN 20 MG TAB PO SCH (20:06)
--- NOTE | 2017-09-03 21:52 | P.PN ---
Progress Note - Text Progress Note Date: 09/03/17 Patient was seen today. He he was lying on his bed. It's being compliant with his medications. He reports stable moods with his current medications. Denies anger or agitation or aggression. rePorts good sleep and appetite. reports Going to all his groups. 52-year-old male, appears his stated age. Abnormal movements noted. Intense good eye contact.. Speech and thought process are guarded. Mood is reported as good and affect flat. He denies current auditory or visual hallucinations. Nice paranoia. Denies current suicidal or homicidal ideations.He is alert and oriented 4. Continue Abilify 20 mg daily Monitor for symptoms.
[2017-09-04] MEDS: LOSARTAN 50 MG TAB PO SCH ×2 (09:17→19:57)
[2017-09-04] MEDS: amLODIPine 5 MG TAB PO SCH (09:17)
[2017-09-04] MEDS: ATORVASTATIN 20 MG TAB PO SCH (19:57)
--- NOTE | 2017-09-04 20:06 | P.PN ---
Progress Note - Text Progress Note Date: 09/04/17 Patient was seen in his room sitting on his bed. He was delusional. He talked about identity theft. He stated he submitted he is some Social Security number at the bank believes there might have been an identity theft on him. 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 He reports good sleep and appetite. No anger or agitation or irritability reported. Doesn't participate in groups. Stays isolated. 32-year-old male, stating hospital gown marginal grooming and hygiene. Maintains poor eye contact. He is superficially cooperative. No abnormal movements noted. His speech is low in volume rate and tone. He is delusional and paranoid. He denies auditory or visual hallucinations. Denies current suicidal or homicidal ideations. He is alert and oriented 4. Insight and judgment are limited. Continue Abilify 20 mg daily Monitor for symptoms. Encourage participation in groups and finnegan milieu Social work to coordinate discharge planning and placement.
[2017-09-05] MEDS: LOSARTAN 50 MG TAB PO SCH ×2 (09:11→20:52)
[2017-09-05] MEDS: amLODIPine 5 MG TAB PO SCH (09:11)
--- NOTE | 2017-09-05 13:28 | P.PN ---
Subjective Progress Note Date: 09/05/17 Principal diagnosis: Schizophrenia, multiple episodes, currently in acute period I reviewed the medical record, attempted to interview the patient and discuss his treatment and treatment plan during team meeting. He is preoccupied about "identity theft" he gave a disjointed and illogical explanation that his Social Security identity was stolen. Family talked about disposition and aftercare. He emphatically stated that he does not want to return to his prior residence (a residential care alternative home in [facility]). He was angry that they "take my money" and only give him a "$26 for food." He again talked about wanting to move to [facility]. Objective - Vital Signs Vital signs: Vital Signs Temp 97.8 F 09/05/17 06:27 Pulse 89 09/05/17 06:27 Resp 16 09/05/17 06:27 BP 132/89 09/05/17 06:27 Pulse Ox 97 08/24/17 16:21 Intake & Output 09/04/17 09/05/17 09/05/17 18:59 06:59 18:59 Weight 97.9 kg - Psychiatric Psychiatric Comment(s): He presented as a disheveled appearing moderately obese -Burundian male with long thick matted hair. He made eye contact and appeared to attend to the interview. He had a flat facial expression. He showed psychomotor retardation but no abnormal movements. Her speech was not spontaneous and had decreased volume and rhythm. His affect was flat and unreactive. He did not express suicidal ideation, wishes or homicidal ideation. In response to questions about hopelessness, helplessness and worthlessness he shook his head and said "no". He expressed fragmented delusional beliefs. His thinking was concrete and illogical. He denied hallucinations and did not appear to be responding to internal stimuli. - Labs CBC & Chem 7: 08/23/17 05:27 08/23/17 05:27 Assessment and Plan (1) Schizophrenia Current Visit: Yes Status: Acute Priority: High Code(s): F20.9 - SCHIZOPHRENIA, UNSPECIFIED SNOMED Code(s): 04450207 Plan: Continue inpatient hospitalization due to severity of his psychiatric symptoms. Continue Abilify 20 mg daily for 14 days after his first injection Maintena. Consider trial of an antidepressant to address amotivation an apparent anhedonia. Coordinate discharge and aftercare with [facility]. Encourage patient to participate in therapeutic groups and activities. Evaluate clinical status response to treatment on a daily basis.
[2017-09-05] MEDS: ATORVASTATIN 20 MG TAB PO SCH (20:52)
[2017-09-06] MEDS: amLODIPine 5 MG TAB PO SCH (09:19)
[2017-09-06] MEDS: LOSARTAN 50 MG TAB PO SCH ×2 (09:19→20:47)
--- NOTE | 2017-09-06 13:45 | P.PN ---
Subjective Progress Note Date: 09/06/17 Principal diagnosis: Schizophrenia, multiple episodes, currently in acute period I reviewed the medical record, attempted to interview the patient and discuss his treatment and treatment plan during team meeting. He mumbled answers to questions and did not volunteer information. In response to my questions about where he will live after discharge he replied that he does not know. We discussed his clinical status and disposition during team meeting. The social sciences lecturer will contact his motor vehicle assembly supervisor at [facility] and arrange for discharge to his former residential intermediate. Objective - Vital Signs Vital signs: Vital Signs Temp 98.0 F 09/06/17 06:33 Pulse 83 09/06/17 06:33 Resp 18 09/06/17 06:33 BP 140/66 09/06/17 06:33 Pulse Ox 97 08/24/17 16:21 - Psychiatric Psychiatric Comment(s): He presented as a disheveled appearing moderately obese -Mongolian male with long thick matted hair. He made eye contact and appeared to attend to the interview. He had a flat facial expression. He showed psychomotor retardation but no abnormal movements. Her speech was not spontaneous and had decreased volume and rhythm. His affect was flat and unreactive. He did not express suicidal ideation, wishes or homicidal ideation. I do not understand his response to my questions about hopelessness and helplessness. I did not discern clear delusional belief but his speech was somewhat mumbled that he was difficult to understand. His thinking was concrete and illogical. He did not appear to be responding to internal stimuli. - Labs CBC & Chem 7: 08/23/17 05:27 08/23/17 05:27 Assessment and Plan Assessment: He has severe and prominent negative symptoms of schizophrenia. I do not believe an antidepressant will make an affective change in his negative symptoms. (1) Schizophrenia Current Visit: Yes Status: Acute Priority: High Code(s): F20.9 - SCHIZOPHRENIA, UNSPECIFIED SNOMED Code(s): 62040346 Plan: Continue inpatient hospitalization due to severity of his psychiatric symptoms. Continue Abilify 20 mg daily until 09/14/17 (14 days after his first injection Maintena). Coordinate discharge and aftercare with [facility]. Encourage patient to participate in therapeutic groups and activities. Evaluate clinical status response to treatment on a daily basis.
[2017-09-06 15:18] VITALS: BMI 33.7
[2017-09-06] MEDS: ATORVASTATIN 20 MG TAB PO SCH (20:47)
[2017-09-07] MEDS: LOSARTAN 50 MG TAB PO SCH ×2 (08:28→20:57)
[2017-09-07] MEDS: amLODIPine 5 MG TAB PO SCH (08:28)
--- NOTE | 2017-09-07 14:25 | P.PN ---
Subjective Progress Note Date: 09/07/17 Principal diagnosis: Schizophrenia, multiple episodes, currently in acute period I reviewed the medical record, attempted to interview the patient and discuss his treatment and treatment plan during team meeting. He mumbled answers to questions and did not volunteer information. He posed no objections when I informed him the plan is for him to return to the residential care alternative home in [facility]. I asked permission to speak with his mother. He replied that "the woman" who claims to be his mother is an imposter and not his mother. His real mother is "Loan Osman." The social media sr strategy manager informed treatment team that his residential care alternative home will be able to pick him up from the hospital tomorrow. Objective - Vital Signs Vital signs: Vital Signs Temp 98.1 F 09/07/17 07:36 Pulse 155 H 09/07/17 09:55 Resp 16 09/07/17 09:55 BP 126/66 09/07/17 09:55 Pulse Ox 97 08/24/17 16:21 Intake & Output 09/06/17 09/07/17 09/07/17 18:59 06:59 18:59 Weight 97.9 kg - Musculoskeletal Musculoskeletal Comment(s): He presented as a disheveled appearing moderately obese -[place] male with long thick matted hair. He made eye contact and appeared to attend to the interview. He had a flat facial expression. He showed psychomotor retardation but no abnormal movements. Her speech was not spontaneous and had decreased volume and rhythm. His affect was flat and unreactive. He did not express suicidal ideation, wishes or homicidal ideation. He expressed a Capgras type delusions involving his mother. His thinking was concrete and illogical. He did not appear to be responding to internal stimuli. - Labs CBC & Chem 7: 08/23/17 05:27 08/23/17 05:27 Assessment and Plan Assessment: He is severely mentally ill and is minimal improvement (1) Schizophrenia Current Visit: Yes Status: Acute Priority: High Code(s): F20.9 - SCHIZOPHRENIA, UNSPECIFIED SNOMED Code(s): 97049851 Plan: Continue inpatient hospitalization due to severity of his psychiatric symptoms. Continue Abilify 20 mg daily until 09/14/17 (14 days after his first injection Maintena). Discharge on 09/08/2017 with follow-up through [facility]. Encourage patient to participate in therapeutic groups and activities. Evaluate clinical status response to treatment on a daily basis.
[2017-09-07] MEDS: ATORVASTATIN 20 MG TAB PO SCH (20:57)
[2017-09-07 21:02] VITALS: RESP 18
[2017-09-08 06:53] VITALS: TEMP 97.6
[2017-09-08] MEDS: amLODIPine 5 MG TAB PO SCH (09:12)
[2017-09-08] MEDS: LOSARTAN 50 MG TAB PO SCH (09:12)
[2017-09-08 09:14] VITALS: BP 138/80; PULSE 144
--- NOTE | 2017-09-08 11:27 | P.DS ---
Providers Date of admission: 08/23/17 19:10 Attending physician: Anirudh Stockton MD Consults: 08/23/17 19:15 Consult Physician Routine Consulting Provider: Raymundo Physician Consult Reason/Comments: H and P and medical management. Do you want consulting provider notified?: Yes Primary care physician: Stated None - Discharge Diagnosis(es) (1) Schizophrenia Current Visit: Yes Status: Chronic Priority: High Hospital Course: The patient is a 32-year-old single -Tuvaluan male who has a history of chronic schizophrenia. The police brought him to the hospital involuntarily because he was tried to enter [place] was a van he has stolen from his [facility] home. He apparently told a boarder Crossing Agent that he was a [employer] agent who was "investigating cold cases." Upon investigation, we found that he was discharged from [facility] on 08/14/2017 and remains on involuntary treatment order. He initially refused prescribed antipsychotic medication until we provided him with copies of the involuntary treatment order. On admission he was disheveled, unkept and malodorous. His speech was rambling and tangential. He expressed multiple delusional thoughts such as being a law tutor, that is a medical doctor and that he is not Terell Sims but Terell Sims's brother. We admitted him to the psychiatric unit initially under the care of Dr. Goodman. He provided a comprehensive biopsychosocial assessment. The medical claims assistant completed the initial physical examination and medical history and diagnosed hypertension, dyslipidemia, tobacco use, obesity with BMI of 35. Her resumed the antihypertensive losartan at 100 mg twice a day. Due to persistent elevation of blood pressure the medical claims assistant recommended, in addition to losartan, Norvasc 5 mg daily. The social services specialist coordinated disposition and aftercare with [facility]. The patient's outpatient case manager from [facility] visited him during the hospital stay. We began treatment with Abilify 15 mg per day and titrated dose to 20 mg daily. He was compliant with prescribed medications. He posed no management problem and did not require emergent medications for agitation or behavioral dyscontrol. On we administered Abilify Maintena 400 mg IM. We continued the oral Abilify and recommended continue the Abilify until 09/14/2017. He remained in his room most of the hospital stay coming out only for meals. He did not participate in therapeutic groups or activities. He did not make attempts to interact with staff or other patients. At the time of discharge he presented as a slightly malodorous disheveled appearing 32-year-old male who was pleasant on approach. He made eye contact and attended to the interview. He had a flat facial expression. He showed psychomotor retardation but no abnormal movements. Her speech was not spontaneous and had decreased rate, rhythm and volume. His affect was flat and unreactive. He denied suicidal ideation or wishes. He denied homicidal ideation. He did not express depressive cognitions such as hopelessness, helplessness or worthlessness. He did not express overt ideas of reference, paranoid ideation or delusional thoughts. His thinking was concrete and associations appeared coherent. He denied hallucinations and did not appear to be responding to internal stimuli. The next injection of Abilify maintaining a 400 mg would be scheduled for 2017. Patient Condition at Discharge: Stable Plan - Discharge Summary Discharge Rx Participant: No New Discharge Prescriptions: New amLODIPine [Norvasc] 5 mg PO DAILY #30 tab ARIPiprazole [Abilify] 20 mg PO DAILY #6 tab Continue Simvastatin [Zocor] 20 mg PO HS@1999 Losartan Potassium 100 mg PO BID@08,20 Discontinued fluPHENAZine DECANOATE [Prolixin Decanoate] 1 dose IM [id number] OXcarbazepine [Trileptal] 600 mg PO BID@08,20 ARIPiprazole [Abilify] 15 mg PO DAILY@0800 Discharge Medication List Losartan Potassium 100 mg PO BID@08,20 08/23/17 [History] Simvastatin [Zocor] 20 mg PO HS@199908/23/17 [History] ARIPiprazole [Abilify] 20 mg PO DAILY #6 tab 09/08/17 [Rx] amLODIPine [Norvasc] 5 mg PO DAILY #30 tab 09/08/17 [Rx] Follow up Appointment(s)/Referral(s): intake,intake [Other] - 09/09/17 1:[address] Shameka [Other] - 1 Week Patient Instructions/Handouts: Schizophrenia (DC) Activity/Diet/Wound Care/Special Instructions: Keep your follow up appointment as scheduled and take all medications as prescribed. Do not drink alcohol or take any drugs not prescribed for you. Discharge Disposition: HOME SELF-CARE
== END 2017-09-08 15:07 | disposition home or self-care (01) | DRG 885 ==
LOC: EC 05:07 → 3MHU 19:10
PROVIDERS: ADMIT Psychiatry & Neurology Psychiatry; ATTEND Psychiatry & Neurology Psychiatry
DX: F20.9 Schizophrenia, unspecified (principal); E66.9 Obesity, unspecified; Z68.35 Body mass index [BMI] 35.0-35.9, adult; E78.5 Hyperlipidemia, unspecified; F17.200 Nicotine dependence, unspecified, uncomplicated; F31.9 Bipolar disorder, unspecified; I10 Essential (primary) hypertension; Z79.899 Other long term (current) drug therapy
CPT/HCPCS: 36415; 80053; 80061; 80183; 80306; 81001; 82075; 84443; 84484; 85025; 87086; 96372; 99285